=== PATIENT | male | born 1995 | race Caucasian/White ===

== ENCOUNTER 2018-06-08 15:19 | Emergency (ER) | payer BC, OTHER ==
[2018-06-08 15:30] VITALS: BP 129/72
--- NOTE | 2018-06-08 16:01 | EDM.PDOC ---
ED HPI GENERAL MEDICAL PROBLEM - General Chief Complaint: Chest Pain Stated Complaint: CHEST PAIN/SOB Time Seen by Provider: 06/08/18 15:29 Source of Information: Reports: Patient, RN Notes Reviewed - History of Present Illness INITIAL COMMENTS - FREE TEXT/NARRATIVE: 22 year old male with hx of brief uncomfortable ache L chest yesterday for just 20 to 30 seconds and than had that occur again today about 5 hrs ago. No further sx since that time. It did hurt to breathe deeply for just a minute or 2 today. No further sx today. Has not been ill. No hx of heart or lung problems. - Related Data Allergies Allergy/AdvReac Type Severity Reaction Status Date / Time penicillin Allergy Airway Verified 06/08/18 15:24 Tightness Home Meds: Home Meds . [No Known Home Meds] 01/01/15 [History] Past Medical History - Past Health History Medical/Surgical History: Denies Medical/Surgical History Social & Family History - Tobacco Use Smoking Status *Q: Never Smoker - Caffeine Use Caffeine Use: Reports: None - Recreational Drug Use Recreational Drug Use: No ED ROS GENERAL - Review of Systems Review Of Systems: See Below Constitutional: Denies: Fever, Chills, Diaphoresis HEENT: Reports: No Symptoms Respiratory: Reports: Shortness of Breath (gone). Denies: Cough Cardiovascular: Reports: Chest Pain. Denies: Lightheadedness GI/Abdominal: Denies: Abdominal Pain, Nausea, Vomiting Musculoskeletal: Denies: Neck Pain, Shoulder Pain, Arm Pain, Back Pain Skin: Reports: No Symptoms Neurological: Denies: Dizziness ED EXAM, GENERAL - Physical Exam Exam: See Below General Appearance: Alert, No Apparent Distress Throat/Mouth: Normal Inspection Head: Atraumatic Neck: Supple Respiratory/Chest: No Respiratory Distress, Lungs Clear, Normal Breath Sounds, Chest Non-Tender Cardiovascular: Regular Rate, Rhythm GI/Abdominal: Soft, Non-Tender Extremities: Normal Inspection Neurological: Alert, Oriented, No Motor/Sensory Deficits Skin Exam: Warm, Dry, Normal Color Course - Vital Signs Last Recorded V/S: Last Vital Signs Temp 98.5 F 06/08/18 15:24 Pulse 72 06/08/18 15:24 Resp 18 06/08/18 15:24 BP 129/72 06/08/18 15:24 Pulse Ox 100 06/08/18 15:24 - Orders/Labs/Meds Orders: Active Orders 24 hr Category Date Time Status Chest 1V Frontal [CR] Stat Exams 06/08/18 15:44 Taken - Re-Assessments/Exams Free Text/Narrative Re-Assessment/Exam: 06/08/18 16:37 chest X ray nl, sinus rythm on moniter, 02 sats 98 to 100 % at time of my exam , no resp. or other distress, discharge instr. as documented. Departure - Departure Time of Disposition: 16:17 Disposition: Home, Self-Care 01 Condition: Fair Clinical Impression: Atypical chest pain Instructions: Nonspecific Chest Pain, [id number] Referrals: PCP,None [Primary Care Provider] - Forms: ED Department Discharge Additional Instructions: Your heart and lungs have checked out well today. Follow up clinic if you continue to have symptoms of this nature, return to ED if symptoms worsening in any way. - My Orders Last 24 Hours: My Active Orders 06/08/18 15:44 Chest 1V Frontal [CR] Stat - Assessment/Plan Last 24 Hours: My Active Orders 06/08/18 15:44 Chest 1V Frontal [CR] Stat
--- NOTE | 2018-06-08 16:45 | CR ---
Chest: Portable view of the chest was obtained. Comparison: No prior chest x-ray. Heart size and mediastinum are normal. Lungs are clear. Bony structures are unremarkable. Impression: 1. Unremarkable portable chest x-ray. Diagnostic code #1
== END 2018-06-08 16:43 | disposition home or self-care (01) ==
LOC: JD.ED 15:19
DX: R07.89 Other chest pain (principal); Z88.0 Allergy status to penicillin
CPT/HCPCS: 71045; 71045-26; 99282; 99284